=== PATIENT | female | born 1975 | race Caucasian/White ===

== ENCOUNTER 2016-08-31 04:52 | Inpatient (IN) | payer OTHER ==
[2016-08-31 06:43] VITALS: BMI 34.4
[2016-08-31] MEDS: Lactated Ringer's 1,000 ML IV SCH ×2 (08:15→09:30)
[2016-08-31 09:43] LABS: BASO % 0.3 % (0.0-2.0); EOS # 0.6 K/uL (0.0-0.7); EOS % 4.2 % (0.0-4.0); LYMPH # 2.9 K/uL (1.0-4.3); LYMPH % 21.9 % (20.0-40.0); MEAN CELL VOLUME 81.8 fl (81.0-99.0); MEAN CORPUSCULAR HEMOGLOBIN 26.9 pg (27.0-31.0); MEAN CORPUSCULAR HGB CONC 32.9 g/dL (33.0-37.0); MEAN PLATELET VOLUME 9.4 fl (7.2-11.7); MONO % 7.6 % (0.0-10.0); NEUT # 8.8 K/uL (1.8-7.0); RED CELL DISTRIBUTION WIDTH 17.8 % (11.5-14.5); WHITE BLOOD COUNT 13.4 K/uL (4.8-10.8)
--- NOTE | 2016-08-31 10:04 | OBPN ---
Datetime: 08/31/2016 09:50 IP Progress Impression: Normal progression of labor; Reassuring heart rate IP Informed Consent Obtain: Vaginal Delivery; Risks, Benefits and Alternatives Discussed IP Procedures: Artificial ROM IP Progress Plan: Continue present management; Augmentation Pool Provider: Positive Membranes, Provider: Ruptured Amniotic Fluid Color, Provider: Clear Contraction Comments Provider: irregular FHR - Baseline A Provider: 120 Presentation-Admit: Vertex Vital Signs Provider: Reviewed; Within Normal Limits NICHD Variability Prov Fetus A: Moderate 6-25bpm Dilatation, Provider: 2 Effacement, Provider: 50 Station, Provider: -2 Datetime: 08/31/2016 08:40 IP Progress Impression Other: Latent phase of labor IP Progress Note Comment: SIgn out rec'd from previous OB Hospitalist...?tracing/kept for presumed R OM/bloody discharge vs show noted upon [facility] evaluation. FHR accels noted with scalp stimulation...AROM discussed with pt. She wants to wait and re-examin e. A: 40+w latent phase of labor GBS neg P: IVF open 2 liters/O2/left lateral position...will monitor labor progress and FHR tracing NICHD Accel Fetus A IP Provider: 10X10 FHR Category Provider Fetus A: Category II NICHD Decel Fetus A IP Provider: None Datetime: 08/31/2016 08:20 Gestation - Est Wks by US: 40.1
--- NOTE | 2016-08-31 10:06 | OBPN ---
Datetime: 08/31/2016 09:50 IP Progress Note Comment: She feels CTX pain. DOesn't want pain medications. +FM since exam earlier +SVE no change...bloody show A: latent phase of labor P: AROM clear fluid for augmentatoin Pitocin, pain managment, delivery and discussed...will observe progress NICHD Accel Fetus A IP Provider: 15X15 FHR Category Provider Fetus A: Category I NICHD Decel Fetus A IP Provider: None
[2016-08-31] MEDS ORDERED: Lidocaine 1% Inj (20ml) ONE (11:31)
--- NOTE | 2016-08-31 11:37 | OBPN ---
Datetime: 08/31/2016 11:30 IP Progress Impression: Normal progression of labor; Reassuring heart rate IP Informed Consent Obtain: Vaginal Delivery; Risks, Benefits and Alternatives Discussed IP Progress Plan: Continue present management; Augmentation FHR - Baseline A Provider: 130 Presentation-Admit: Vertex IP Progress Note Comment: Notified no cervical chagne CTX q5-8m...will start Pitocin augmentation.. .discussed with pt. She agrees. NICHD Accel Fetus A IP Provider: 15X15 FHR Category Provider Fetus A: Category I NICHD Variability Prov Fetus A: Moderate 6-25bpm Dilatation, Provider: 2 NICHD Decel Fetus A IP Provider: None
[2016-08-31] MEDS ORDERED: Oxytocin 30 units/LR 500ML 500 ML IV SCH (11:45)
--- NOTE | 2016-08-31 17:09 | OBPN ---
Datetime: 08/31/2016 17:00 IP Progress Impression: Normal progression of labor; Reassuring heart rate IP Informed Consent Obtain: Vaginal Delivery; Risks, Benefits and Alternatives Discussed IP Progress Plan: Continue present management; Augmentation Membranes, Provider: Ruptured FHR - Baseline A Provider: 135 Presentation-Admit: Vertex IP Progress Note Comment: She c/o CTX pain the past 1-2h. She declined pain meds earlier A: Active phase of labor P: IV sedatoin and epidural discussed observe labor progress FHR Category Provider Fetus A: Category I NICHD Variability Prov Fetus A: Moderate 6-25bpm Dilatation, Provider: 8-9 Effacement, Provider: 100 Station, Provider: 0
[2016-08-31] MEDS ORDERED: Oxycodone/Acetaminophen 5/325 mg Tab PO PRN (19:58)
[2016-08-31] MEDS ORDERED: Oxytocin 30 units/LR 500ML 500 ML IV ONE (20:03)
--- NOTE | 2016-09-01 00:57 | OBDS ---
DELIVERY PERSONNEL Delivery Doctor: Stephania Simms DO Forensic Photographer: Janine Lancaster RN Resident: MEÑO Dickinson MATERNAL INFORMATION Medications in Delivery: pitocin Estimated Blood Loss (ml): 200 Placenta Cultured: No Maternal Complications: None Provider Comments: 08/31/16 at 19:34 OB attending: Dr. Simms resident: Dr. Ivory of live male , 9/10. Weight 7 lb 8oz . 1 % Lidocaine was infiltrated to perineum . One nuchal cord noted and was reduced without complications. Mouth and nose were suctioned at perin eum. See delivery summary A. Placenta delivered intact. EBL: 200 ml. LABOR SUMMARY EDC: 08/30/2016 00:00 No. Babies in Womb: 1 Attempted: No Labor Anesthesia: None LABOR INFORMATION Reason for Induction: Not Applicable Onset of Labor: 08/31/2016 13:00 Complete Dilatation: 08/31/2016 17:30 Oxytocin: Augmentation Group B Beta Strep: Negative (Annotations: 08/05/16) Antibiotics # of Doses: 0 Steroids Given: None Reason Steroids Not Administered: Not Applicable MEMBRANES Membranes Rupture Method: Artificial Rupture of Membranes: 08/31/2016 09:50 Length of Rupture (hrs): 9.73 Amniotic Fluid Color: Clear Amniotic Fluid Amount: Moderate Amniotic Fluid Odor: Normal STAGES OF LABOR Stage 1 hrs: 4 Stage 1 min: 30 Stage 2 hrs: 2 Stage 2 min: 4 Stage 3 hrs: 0 Stage 3 min: 29 Total Time in Labor hrs: 7 Total Time in Labor min: 3 VAGINAL DELIVERY Episiotomy: None Laceration Extension: Second Degree Laceration Type: Perineal Laceration Repair: Yes Laceration Repair Note: 1% Lidocaine was infiltrated (5cc). 2.) Vicryl Rapide suture was used to re pair perineal laceration Initial Vag Sponge Count: 5 Final Vag Sponge Count: 5 Initial Vag Sharps Count: 3 Final Vag Sharps Count: 3 Sponge Count Correct: Yes Sharps Count Correct: Yes Count Comment: 3 sutures one syringe 5 lap pads BABY A INFORMATION Infant Delivery Date/Time: 08/31/2016 19:34 Method of Delivery: Vaginal Born in Route : No : N/A Forceps: N/A Vacuum Extraction: N/A (Annotations: Data stored by N on behalf of user) Shoulder Dystocia : Yes SHOULDER DYSTOCIA BABY A Infant Delivery Date/Time: 08/31/2016 19:34 1st Intervention to Resolve: McRobert's Maneuver 2nd Intervention to Resolve: McRobert's Maneuver 3rd Intervention to Resolve: Suprapubic Pressure 4th Intervention to Resolve: Posterior Arm Release Verify NO Fundal Pressure: No Fundal Pressure Applied Arm Under Symphisis at Del: Left Shoulder Dystocia Comments: 's head was delivered. One loose nuchal cord noted. With mother pushing, anterior shoulder was not delivered. With second push, McRobert's and suprapubic pressure b ut not delivered. With mother pushing, posterior shoulder was delivered (left)...Peds called to evaluate, examine and infant was noted to be moving both extremities. PRESENTATION/POSITION BABY A Presentation: Cephalic Cephalic Presentation: Vertex Breech Presentation: N/A PLACENTA INFORMATION BABY A Placenta Delivery Time : 08/31/2016 20:03 Placenta Method of Delivery: Spontaneous Placenta Status: Delivered SCORES BABY A Heart Rate 1 min: >100 bpm Resp Effort 1 min: Good Cry Reflex Irritability 1 min: Cough or Sneeze or Pulls Away Muscle Tone 1 min: Active Motion Color 1 min: Body [place], Extremities Blue Resuscitation Effort 1 min: Tactile Stimulation SCORE 1 MIN: 9 Heart Rate 5 min: >100 bpm Resp Effort 5 min: Good Cry Reflex Irritability 5 min: Cough or Sneeze or Pulls Away Muscle Tone 5 min: Active Motion Color 5 min: Completely [place] Resuscitation Effort 5 min: N/A SCORE 5 MIN: 10 INFANT INFORMATION BABY A Gestational Age at Delivery: 40.1 Gestational Status: Outcome : Liveborn Infant Condition : Stable Infant Sex: Male IDENTIFICATION/MEDS BABY A ID Band Number: [id number] ID Band Location: Left Leg; Left Arm WEIGHT/LENGTH BABY A Infant Birthweight (gms): 3395 Weight (lb): 7 Weight (oz): 8 CORD INFORMATION BABY A No. Cord Vessels: 3 Nuchal Cord : Around Neck x1, Loose Cord pH Baby Arterial: 7.20 Cord Blood Taken: Yes Infant Suction: Mouth; Nose ASSESSMENT BABY A Infant Complications: Multiple Variable Decels Physical Findings at Delivery: Within Normal Limits Infant Respirations: Appears Normal [employer] Teacher/ALS Called : No Care By: Dr. Parada; Janine Lancaster RN Transferred To: Remains with Mother
[2016-09-01 07:17] LABS: BASO % 0.2 % (0.0-2.0); EOS # 0.3 K/uL (0.0-0.7); EOS % 1.2 % (0.0-4.0); HEMATOCRIT 30.8 % (34.0-47.0); LYMPH # 2.5 K/uL (1.0-4.3); LYMPH % 11.6 % (20.0-40.0); MEAN CELL VOLUME 82.6 fl (81.0-99.0); MEAN CORPUSCULAR HEMOGLOBIN 26.8 pg (27.0-31.0); MEAN CORPUSCULAR HGB CONC 32.4 g/dL (33.0-37.0); MEAN PLATELET VOLUME 9.3 fl (7.2-11.7); MONO # 2.1 K/uL (0.0-0.8); MONO % 9.9 % (0.0-10.0); NEUT # 16.5 K/uL (1.8-7.0); NEUT % 77.1 % (50.0-75.0); RED CELL DISTRIBUTION WIDTH 17.8 % (11.5-14.5); WHITE BLOOD COUNT 21.5 K/uL (4.8-10.8)
[2016-09-01] MEDS: Multivitamin With Minerals Tab PO SCH (09:18)
--- NOTE | 2016-09-01 11:12 | OBPPN ---
Datetime: 09/01/2016 05:53 PP Pain Prov: Within normal limits PP Nausea Prov: Denies PP Flatus Prov: Yes PP BM Prov: No PP Breasts Prov: Normal PP Heart Prov: Normal PP Lungs Prov: Normal PP Abdomen/Uterus Prov: Normal PP Lochia Prov: Normal PP Vulva/Perineum Prov: Not Done PP CVA Tenderness Prov: Normal PP Extremities Prov: Normal PP C/S Incision Prov: Not Applicable PP Progress Prov: Normal PP Impression Prov: Normal progression PP Plan Prov: Continue present management PP Progress Note Prov: Patient was seen and examined at bedside this morning. patient had an unevent ful night. States intermittent mild lower abdominal pain relieved with Ibuprofen PO. Patient is ambul ating on her own without dizziness ot other complains. Patient is tolerating PO well. Denies nausea o r vomiting. Voiding well after vaginal delivery, passing gas, but has not yet had a bowel movement. R eports that lochia are like menses, but no foul-smelling. She is her baby. Denies SOB, chest pain, or other complains at this evaluation. O: Afebrile General: Alert, Oriented X 3, in no acute distress CV: RRR, Normal S1, S2 Resp: clear lungs bilateral Abd: soft, no distended, no tender to palpation at this evaluation. No rigidity or guarding. Uteru s is firm above umbilicus. BS present. Extremities: peripheral pulses present and strong, no edema, Nitesh's sign negative bilateral A: 40 y/o , S/p /2nd degree laceration on PPD 1 with normal progression. Plan: -Continue current management -Continue pain management with Ibuprofen and Percocet as needed for pain scale. -Conitnue multivitamins PO daily -Continue regular diet -Encourage ambulation, hydration, and . -Consider Colace PO as needed if constipation is reported. -F/U ppCBC -F/U Rubella IGG. Consider MMR vaccine if equivocal or no immune. -Remove IV access if continue tolerating PO well throughout the day -Anticipated DC on 09/02/16 Vanessa Ivory PGY1 The patient was seen with the resident and agree with the notes.Encourage ambulation,Regular diet andanalgesia as neededand anticipate discharge in the morning IP PP Procedures: None Vital Signs Provider PP: Reviewed; Within Normal Limits
[2016-09-01] MEDS ORDERED: Docusate-Senna 50 mg-8.6 mg Tab PO SCH (22:00)
[2016-09-02] MEDS ORDERED: Lansinoh for Breast Feeding Mothers TP PRN (08:48)
[2016-09-02] MEDS: Multivitamin With Minerals Tab PO SCH (10:00)
[2016-09-02 12:08] VITALS: BP 106/69; PULSE 75; RESP 20; TEMP 98.3
[2016-09-03] MEDS ORDERED: Multivitamin With Minerals Tab PO SCH (09:00)
--- NOTE | 2016-09-06 17:54 | OBHP ---
Datetime: 08/31/2016 17:00 Presentation-Admit: Vertex FHR - Baseline A Provider: 135 Membranes, Provider: Ruptured NICHD Variability Prov Fetus A: Moderate 6-25bpm FHR Category Provider Fetus A: Category I Dilatation, Provider: 8-9 Effacement, Provider: 100 Station, Provider: 0 Datetime: 08/31/2016 11:30 NICHD Accel Fetus A IP Provider: 15X15 NICHD Decel Fetus A IP Provider: None Datetime: 08/31/2016 09:50 Amniotic Fluid Color, Provider: Clear Contraction Comments Provider: irregular Pool Provider: Positive Vital Signs Provider: Reviewed; Within Normal Limits Datetime: 08/31/2016 08:20 IP Adm Impression: Term, intrauterine IP Admit Plan: Admit to unit; Initiate labor protocol Extremities - PN: Normal Abdomen - PN: Normal Back - PN: Normal Lungs - PN: Normal Heart - PN: Normal Thyroid - PN: Normal Neurologic - PN: Normal HEENT - PN: Normal General - PN: Normal Comments, ACOG Physical Exam: Bedside US: cephalic presentation VE: 1cm, 70%. Scant amount of blood noticed. No LOF. done by Dr Zimmerman Gestation - Est Wks by US: 40.1 IP Hx Assessment: The History has been Reviewed and is Current IP Indication for Induction: Not Applicable IP Chief Complaint: Uterine contractions; Suspected ruptured membranes Datetime: 08/31/2016 05:55 IP Adm Impression Other: Suspected rupture of membrane Admit Comment, IP Provider: This is a 40 y/o at 40.1 weeks, CHANEL : 08/30/16 based on her LMP pres ents complaining of small amount of leakage of fluids followed by gush of blood around 2-2:30 am this morning, as well as she started having uterine contractions every 10-15 minutes which have been more frequent and assocaited with abdominal pain -02/27. Reports good movements. PMHx:Denies OBHx: Denies complications during current Meds: vitamins SHx: Denies SocialHx: Denies smoking, no etoh, no recreational drugs O: labs: GBS: negative, HIV: negative, GC/Chl: negative/negative Bedside US: cephalic presentation A: 40 y/o at 40.1 weeks presents with vaginal bleeding and suspected rupture of membrane, in no active labor. Plan: Continue external monitor Case discussed with Dr. Zimmerman. Vanessa Ivory PGY1 OBH ADDENDUM: pt seen _ examined by me. agree with above assessment and plan with addition of p: observe Pelvic Type - PN: Adequate Genitourinary Exam: Normal
--- NOTE | 2016-09-06 18:02 | OBHP ---
Datetime: 08/31/2016 08:20 Admit Comment, IP Provider: 40 y/o at 40.1 weeks, CHANEL : 08/30/16 presents complaining of small amount of LOF followed by gush of blood around 2-2:30 am this morning, as well as she started having uterine contractions every 10-15 minutes which have been more frequent and associated with abdominal pain -02/27. +FM PMHx:Denies OBHx: Denies complications during current Meds: vitamins SHx: Denies SocialHx: Denies smoking, no etoh, no recreational drugs O: labs: GBS: negative, HIV: negative, GC/Chl: negative/negative A: 40 y/o at 40.1 weeks presents with SROM P: - Admit to unit -Initiate Labor protocol -IV LR 1L bolus -CBC, T_S, RPR, HIV Case discussed with Dr Zimmerman. Sebastián Brandt PGY1 OBH ADDENDUM: pt seen _ examined by me. agree with above assessment and plan. FHR - Baseline A Provider: 130-120 Comments, ACOG Physical Exam: Bedside US: cephalic presentation VE: 1cm, 70%. Scant amount of blood noticed. No LOF. done by Dr Zimmerman obh addendum: SSE: dark watery blood in vault menstrual type bleeding not c/w bloody show NICHD Variability Prov Fetus A: min to moder variability
--- NOTE | 2016-09-06 18:06 | OBADHP ---
Datetime: 08/31/2016 17:00 Presentation-Admit: Vertex Membranes, Provider: Ruptured FHR Category Provider Fetus A: Category I Dilatation, Provider: 8-9 Effacement, Provider: 100 Station, Provider: 0 Datetime: 08/31/2016 11:30 NICHD Accel Fetus A IP Provider: 15X15 NICHD Decel Fetus A IP Provider: None Datetime: 08/31/2016 09:50 Amniotic Fluid Color, Provider: Clear Contraction Comments Provider: irregular Pool Provider: Positive Vital Signs Provider: Reviewed; Within Normal Limits Datetime: 08/31/2016 08:20 Admit Comment, IP Provider: 40 y/o at 40.1 weeks, CHANEL : 08/30/16 presents complaining of small amount of LOF followed by gush of blood around 2-2:30 am this morning, as well as she started having uterine contractions every 10-15 minutes which have been more frequent and associated with abdominal pain . +FM PMHx:Denies OBHx: Denies complications during current Meds: vitamins SHx: Denies SocialHx: Denies smoking, no etoh, no recreational drugs O: labs: GBS: negative, HIV: negative, GC/Chl: negative/negative A: 40 y/o at 40.1 weeks presents with SROM P: - Admit to unit -Initiate Labor protocol -IV LR 1L bolus -CBC, T_S, RPR, HIV Case discussed with Dr Zimmerman. Sebastián Brandt PGY1 OBH ADDENDUM: pt seen _ examined by me. agree with above assessment and plan. Extremities - PN: Normal Abdomen - PN: Normal Back - PN: Normal Lungs - PN: Normal Heart - PN: Normal Thyroid - PN: Normal Neurologic - PN: Normal HEENT - PN: Normal General - PN: Normal FHR - Baseline A Provider: 130-120 Comments, ACOG Physical Exam: Bedside US: cephalic presentation VE: 1cm, 70%. Scant amount of blood noticed. No LOF. done by Dr Zimmerman obh addendum: SSE: dark watery blood in vault menstrual type bleeding not c/w bloody show Gestation - Est Wks by US: 40.1 IP Hx Assessment: The History has been Reviewed and is Current IP Chief Complaint: Uterine contractions; Suspected ruptured membranes NICHD Variability Prov Fetus A: min to moder variability IP Adm Impression: Term, intrauterine IP Admit Plan: Admit to unit; Initiate labor protocol Datetime: 08/31/2016 05:55 IP Adm Impression Other: Suspected rupture of membrane Pelvic Type - PN: Adequate Genitourinary Exam: Normal
== END 2016-09-02 19:45 | disposition home or self-care (01) | DRG 373 ==
LOC: H.EROB2 04:52 → H.L&D 08:02 → H.OB/GYN 21:30
PROVIDERS: ADMIT Obstetrics & Gynecology; ATTEND Obstetrics & Gynecology
PROC: 10E0XZZ Delivery of Products of Conception, External Approach (ICD-10-PCS; principal; 2016-08-31)
PROC: 0KQM0ZZ Repair Perineum Muscle, Open Approach (ICD-10-PCS; 2016-08-31)
PROC: 4A1HXCZ Monitoring of Products of Conception, Cardiac Rate, External Approach (ICD-10-PCS; 2016-08-31)
DX: O76 Abnormality in fetal heart rate and rhythm complicating labor and delivery (principal); O66.0 Obstructed labor due to shoulder dystocia; Z37.0 Single live birth; O69.81X0 Labor and delivery complicated by cord around neck, without compression, not applicable or unspecified; Z3A.40 40 weeks gestation of pregnancy; O70.1 Second degree perineal laceration during delivery

== ENCOUNTER 2018-07-02 04:34 | Inpatient (IN) | payer OTHER ==
[2018-07-02 04:59] VITALS: BMI 32.2
[2018-07-02] MEDS ORDERED: Lactated Ringer's 1,000 ML IV ONE (05:07)
[2018-07-02] MEDS ORDERED: Oxytocin 30 UNIT 30 UNITS/500 ML BAG IV ONE (05:09)
[2018-07-02] MEDS ORDERED: OXYTOCIN/0.9 % NS 20 UNIT/1,000 ML BAG IV SCH (05:15)
[2018-07-02] MEDS ORDERED: Lactated Ringer's 1,000 ML IV SCH (05:15)
[2018-07-02 05:54] LABS: BASO % 0.2 % (0.0-2.0); EOS # 0.1 K/uL (0.0-0.7); HEMOGLOBIN 12.1 g/dL (12.0-16.0); LYMPH % 16.1 % (20.0-40.0); MEAN CELL VOLUME 81.2 fl (81.0-99.0); MEAN CORPUSCULAR HEMOGLOBIN 26.7 pg (27.0-31.0); MEAN CORPUSCULAR HGB CONC 32.9 g/dL (33.0-37.0); MEAN PLATELET VOLUME 9.8 fl (7.2-11.7); MONO # 0.8 K/uL (0.0-0.8); MONO % 6.7 % (0.0-10.0); NEUT # 9.5 K/uL (1.8-7.0); NRBC % 0.1 % (0.0-0.0); RBC 4.52 Mil/uL (3.80-5.20); RED CELL DISTRIBUTION WIDTH 17.6 % (11.5-14.5); WHITE BLOOD COUNT 12.5 K/uL (4.8-10.8)
--- NOTE | 2018-07-02 09:10 | OBADHP ---
Datetime: 07/02/2018 04:04 Admit Comment, IP Provider: at 40wks GA presented to [facility] c/o contractions. No VB, LoF. Pt re ports good FM. Otherwise without complaints PMHx denies PSHx denies Meds PNV OBHx x 1 SocHx denies tob, etoh, drugs A--Active labor, category I FHT P--Admit for management of labor and delivery. Pelvic Type - PN: Adequate Extremities - PN: Normal Abdomen - PN: Normal Back - PN: Normal Breast - PN: Normal Lungs - PN: Normal Heart - PN: Normal Thyroid - PN: Normal Neurologic - PN: Normal HEENT - PN: Normal General - PN: Normal FHR - Baseline A Provider: 130s Contraction Comments Provider: q2-5min Vital Signs Provider: Reviewed; Within Normal Limits IP Chief Complaint: Uterine contractions NICHD Variability Prov Fetus A: Moderate 6-25bpm FHR Category Provider Fetus A: Category I NICHD Decel Fetus A IP Provider: None Dilatation, Provider: 7 Effacement, Provider: 100 Station, Provider: 0 Genitourinary Exam: Normal DTRs - PN: Normal IP Adm Impression: Term, intrauterine ; Active labor; Intact Membranes IP Admit Plan: Admit to unit; Initiate labor protocol
[2018-07-02] MEDS ORDERED: Oxycodone/Acetaminophen 5/325 mg Tab PO PRN ×2 (09:22→12:29)
[2018-07-02] MEDS ORDERED: Benzocaine/Menthol SPRAY TOP PRN ×2 (09:22→12:29)
[2018-07-02 11:35] VITALS: RESP 18; O2SAT 99
--- NOTE | 2018-07-03 07:32 | OBPPN ---
Datetime: 07/03/2018 07:26 PP Pain Prov: Within normal limits PP Abdomen/Uterus Prov: Normal PP Lochia Prov: Normal PP Progress Prov: Normal PP Impression Prov: Normal progression PP Progress Note Prov: PPD 1s/p , doing well, braest feeding Continue current care Vital Signs Provider PP: Reviewed
[2018-07-03 11:00] LABS: HEMOGLOBIN 12.1 g/dL (12.0-16.0); MEAN CELL VOLUME 82.2 fl (81.0-99.0); MEAN CORPUSCULAR HEMOGLOBIN 27.4 pg (27.0-31.0); MEAN CORPUSCULAR HGB CONC 33.3 g/dL (33.0-37.0); RBC 4.43 Mil/uL (3.80-5.20); RED CELL DISTRIBUTION WIDTH 17.6 % (11.5-14.5); WHITE BLOOD COUNT 10.6 K/uL (4.8-10.8)
--- NOTE | 2018-07-04 10:14 | OBDCSUM ---
Datetime: 07/04/2018 06:22 Discharged to, Provider: Home Follow up at, Provider: Kailash Sousa Instr Activity: Normal activity; May be up to bathroom; May be up for meals; May Shower Disch Instr Diet: Regular Discharge Diet restrict Prov: None Discharge Instructions, Provider: Routine instructions given Discharge Diagnosis, Provider: Term Delivered Follow up in weeks, Provider: 6 wks Disch Referrals: None Contraception discussed, Prov: Yes Disch Activity Restrictions: No lifting; No sexual activity; Nothing in vagina - [place], tampon s douche Discharge Comment, Provider: 42 y/o s/p on 07/02/18 @ 8:53. EGA: 40 weeks Diagnosis: , 1st degree laceration repaired Summary of : No complications DOD: 07/02/18 @ 08:53 Sex: Female Weight: 3255gm : 9/9 Feeding: breast Post- D/C Summary: S/P with 1st degree laceration repaired with 3-0 Vicryl rapide. No c omplications during post- period. Lochia like menses in volume. Pt able to pass gas, ambulate a nd pass urine. Tolerate regular diet, no BECERRA, CP, SOB, N/V, fever or other acute complaint at this saurabh e. Fundus firm below umbilicus level. Pt is hemodynamically stable. H/H : 12.1/36.4 (admission 12.1/36.7) DISCHARGE DATA D/C DATE: 07/04/18 DISCHARGE INSTRUCTIONS: -Encouraged -PNV 1 tab po q/day -Ibuprofen 600 mg 1 tab po q4-6h PRN mild pain - ED precautions: If excessive bleeding, pain that does not get relief, fever >100.4, palpitations , SOB, CP or other concerning symptom go to the ED. - PT was urged if feeling sad, mood swing, depression, neglect of baby, suicidal thoughts, homicid al thoughts go to ER or call 911 for help - Pt should go to her Primary care doctor if have difficulty with breast feeding - F/U at [facility] in 4-6 week for checkup. Ton Pierson MD, PGY1 Contraception after Delivery: Undecided
--- NOTE | 2018-07-04 10:14 | OBPPN ---
Datetime: 07/04/2018 06:19 PP Pain Prov: Within normal limits PP Nausea Prov: Denies PP Flatus Prov: Yes PP BM Prov: Yes PP Breasts Prov: Not Done PP Heart Prov: Normal PP Lungs Prov: Normal PP Abdomen/Uterus Prov: Normal PP Lochia Prov: Normal PP Vulva/Perineum Prov: Not Done PP CVA Tenderness Prov: Normal PP Extremities Prov: Normal PP C/S Incision Prov: Not Applicable PP Progress Prov: Normal PP Impression Prov: Normal progression PP Plan Prov: Continue present management PP Progress Note Prov: PPD2 S/P 42 yo s/p on 07/02/18 Pt. is seen and examined at bedside this AM. No overnight events. Pt reports mild abdominal pain, well controlled with pain meds. Tolerates regular diet well w/o nausea. Breast feeding without diffic ulties. Lochia is similar to menses in volume. Reports passing flatus and had BM. Denies fever/chills , diarrhea, nausea/vomiting, chest pain, dyspnea, and dizziness. O: Vitally stable GEN: Patient is comfortable. NAD Cardio: S1S2, no murmurs, gallops or rubs. Lungs: CTAB, no wheezing, rales Abdomen: BS+, tenderness to palpation. Uterus is firm and at the level of the umbilicus. EXT: No edema, calves non-tender to palpation Assessment/Plan: 42 yo s/p on 07/02/18. Pt remains afebrile, tolerating pain with medicat ion, doing well on PPD#2. - OOB with caution - SCDs for DVT prophylaxis, encouraged ambulating - Ibuprofen 600 mg for mild pain and Percocet 5/325 mg for mod-severe pain - Continue to encourage and ambulating - f/u CBC post op: 12.36.4 - Anticipated d/c to home today, 07/04/2017. Ton Pierson, PGY1 OB Hospitalist: On rounds, I saw this patient. Agree with note. YA Vital Signs Provider PP: Reviewed; Within Normal Limits
--- NOTE | 2018-07-04 11:30 | OBDS ---
MATERNAL INFORMATION Provider Comments: Uncomplicated of a viable female infant with scores of 9 and 9. EBL- 200mls A small 1st degree laceration at the posterior fauchette was repaired with 3-0 vicryl rapide under local anesthesia with 1 % Lidocaine. Good cosmesis. Patient tolerated the procedure well. LABOR SUMMARY EDC: 07/01/2018 00:00 No. Babies in Womb: 1 LABOR INFORMATION Group B Beta Strep: Negative MEMBRANES Membranes Rupture Method: Artificial Rupture of Membranes: 07/02/2018 08:25 Amniotic Fluid Color: Clear Amniotic Fluid Amount: Small Amniotic Fluid Odor: Normal VAGINAL DELIVERY Episiotomy: None Laceration Extension: First Degree Laceration Type: Vaginal Laceration Repair: Yes Sponge Count Correct: Yes Sharps Count Correct: Yes PRESENTATION/POSITION BABY A Presentation: Cephalic
[2018-07-04 23:08] VITALS: BP 122/78; PULSE 92; TEMP 97.9
== END 2018-07-04 19:00 | disposition home or self-care (01) | DRG 373 ==
LOC: H.EROB2 04:34 → H.L&D 05:07 → H.OB/GYN 12:39
PROVIDERS: ADMIT Obstetrics & Gynecology; ATTEND Obstetrics & Gynecology
PROC: 10E0XZZ Delivery of Products of Conception, External Approach (ICD-10-PCS; principal; 2018-07-02)
PROC: 0HQ9XZZ Repair Perineum Skin, External Approach (ICD-10-PCS; 2018-07-02)
PROC: 4A1HXCZ Monitoring of Products of Conception, Cardiac Rate, External Approach (ICD-10-PCS; 2018-07-02)
DX: O70.0 First degree perineal laceration during delivery (principal); Z37.0 Single live birth; Z3A.40 40 weeks gestation of pregnancy